=== PATIENT | male | born 1985 | race African-American/Black ===

== ENCOUNTER 2018-03-02 23:12 | Emergency (ER) | payer SELFPAY ==
[2018-03-02 23:31] VITALS: BMI 34.7
[2018-03-03] MEDS ORDERED: ACETAMINOPHEN 1000 MG/100 ML VIAL (NON FORMULARY) IVPB ONE (00:24)
[2018-03-03] MEDS ORDERED: DEXAMETHASONE SOD PHOSPHATE 10 MG/1 ML VIAL IVPUSH ONE (00:24)
[2018-03-03] MEDS ORDERED: SODIUM CHLORIDE 0.9% 500 ML INFUS.BAG IV ONE (00:24)
[2018-03-03] MEDS ORDERED: PENICILLIN G BENZATHINE 1,200,000 UNIT/2 ML PFS IM ONE (00:30)
[2018-03-03] MEDS ORDERED: DEXAMETHASONE SOD PHOSPHATE 10 MG/1 ML VIAL ONE (00:33)
[2018-03-03] MEDS ORDERED: ACETAMINOPHEN INJECTION 100 ML IVPB ONE (00:33)
--- NOTE | 2018-03-03 00:37 | PDOC ---
History of Present Illness - General Chief Complaint: Headache Stated Complaint: FEVER/PAIN Time Seen by Provider: 03/03/18 00:16 History Source: Patient Exam Limitations: No Limitations - History of Present Illness Initial Comments: 03/03/18 00:30 And is a 32-year-old male with no past medical history with complaints of throat pain since this morning. He describes the pain as sharp, burning, 10/10, it makes it difficult for him to swallow. States he's been having fever all day despite taking Motrin. His temp today was 103.5. Also complains of lightheadedness dizzy, left ear pain. Took Motrin at 8:00 tonight with minimal relief. Denies nausea, vomiting, cough, shortness of breath. PMHX: none PSOCHX: neg etoh, cig, drug ALL: NKDA GENERAL/CONSTITUTIONAL: [No fever or chills. No weakness. No weight change.] HEAD, EYES, EARS, NOSE AND THROAT: [No change in vision. (+) ear pain (-) discharge. (+) sore throat.] CARDIOVASCULAR: [No chest pain or shortness of breath.] RESPIRATORY: [No cough, wheezing, or hemoptysis.] GASTROINTESTINAL: [No nausea, vomiting, diarrhea or constipation. No rectal bleeding.] GENITOURINARY: [No dysuria, frequency, or change in urination.] MUSCULOSKELETAL: [No joint or muscle swelling or pain. No neck or back pain.] SKIN AND BREASTS: [No rash or easy bruising.] NEUROLOGIC: [No headache, vertigo, loss of consciousness, or loss of sensation.] PSYCHIATRIC: [No depression or anxiety.] ENDOCRINE: [No increased thirst. No abnormal weight change.] HEMATOLOGIC/LYMPHATIC: [No anemia, easy bleeding, or history of blood clots.] ALLERGIC/IMMUNOLOGIC: [No hives or skin allergy. No latex allergy.] GENERAL: [The patient is awake, alert, and fully oriented, in no acute distress. ] HEAD: [Normal with no signs of trauma.] EYES: [Pupils equal, round and reactive to light, extraocular movements intact, sclera anicteric, conjunctiva clear.] ENT: [Ears normal, nares patent, oropharynx with swelling, erythema, exudates, ( +) cervical lymph node on the left, (-) [employer]. Moist dry membranes. NECK: [Normal range of motion, supple without lymphadenopathy, JVD, or masses.] LUNGS: [Breath sounds equal, clear to auscultation bilaterally. No wheezes, and no crackles.] HEART: [Regular rate and rhythm, normal S1 and S2 without murmur, rub.] ABDOMEN: [Soft, nontender, normoactive bowel sounds. No guarding, no rebound. No masses.] EXTREMITIES: [Normal range of motion, no edema. No clubbing or cyanosis. No cords, erythema, or tenderness.] NEUROLOGICAL: [Cranial nerves II through XII grossly intact. Normal speech, normal gait.] PSYCH: [Normal mood, normal affect.] SKIN: [Warm, Dry, normal turgor, no rashes or lesions noted.] Past History - Past Medical History Allergies/Adverse Reactions: Allergies Allergy/AdvReac Type Severity Reaction Status Date / Time No Known Allergies Allergy Verified 03/02/18 23:20 Cardiac Disorders: No CVA: No COPD: No DVT: No Dementia: No Diabetes: No - Surgical History Appendectomy: Yes - Suicide/Smoking/Psychosocial Hx Smoking History: Never smoked Information on smoking cessation initiated: No Hx Alcohol Use: No Drug/Substance Use Hx: No Substance Use Type: None *Physical Exam - Vital Signs Last Vital Signs Temp Pulse Resp BP Pulse Ox 100.6 F H 104 H 20 150/89 96 03/02/18 23:20 03/02/18 23:20 03/02/18 23:20 03/02/18 23:20 03/02/18 23:20 Medical Decision Making - Medical Decision Making 03/03/18 00:30 And is a 32-year-old male with no past medical history with complaints of throat pain since this morning with fever and difficult swallowing consistent, dizziness. 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 Tylenol IV, IVF, decadron IV, bicillin rapid strep neg culture pending 03/03/18 01:38 Patient is improved tolerating po I discussed the physical exam findings, ancillary test results and final diagnoses with the patient. I answered all of the patient's questions. The patient was satisfied with the care received and felt comfortable with the discharge plan and treatment plan. The Patient agrees to follow up with the primary care physician within 24-72 hours 03/03/18 03:00 Selected Entries 03/03/18 02:17 Pulse Rate [ 99 H Left Apical] Respiratory 18 Rate Blood Pressure 119/67 [Right Arm] O2 Sat by Pulse 99 Oximetry (%) *DC/Admit/Observation/Transfer Diagnosis at time of Disposition: Pharyngitis Qualifiers: Pharyngitis/tonsillitis etiology: unspecified etiology Qualified Code(s): J02.9 - Acute pharyngitis, unspecified - Discharge Dispostion Disposition: HOME Condition at time of disposition: Stable - Referrals Referrals: [facility] [Provider Group] - Patient Instructions Printed Discharge Instructions: DI for Pharyngitis/Tonsillopharyngitis -- Adult Additional Instructions: Your Discharge Instructions: You must call primary care physician within 24 hours to arrange follow-up. Return to the Emergency Department with any new, persistent or worsening symptoms, for fever, chills, SOB, dizziness or any other concerning changes that may occur. Continue Tylenol and Motrin for pain. Gargle with warm salty water. - Post Discharge Activity
[2018-03-03] MEDS ORDERED: LIDOCAINE VISCOUS 2% ORAL/TOP 20 ML UNIT-DOSE CUP MM ONE ×2 (01:39→02:50)
[2018-03-03 02:19] VITALS: BP 119/67; PULSE 99
[2018-03-03] MEDS ORDERED: PENICILLIN G BENZATHINE 2,400,000 UNIT/4 ML PFS ONE (02:30)
[2018-03-03] MEDS ORDERED: LIDOCAINE VISCOUS 2% ORAL/TOP 20 ML UNIT-DOSE CUP ONE ×2 (02:30→02:50)
[2018-03-03 03:00] VITALS: TEMP 99.8
== END 2018-03-03 03:02 | disposition home or self-care (01) ==
LOC: JER 23:12
DX: J02.9 Acute pharyngitis, unspecified (principal)
CPT/HCPCS: 87070; 87430; 99281-25; J0131; J1100

== ENCOUNTER 2019-06-10 13:06 | Emergency (ER) | payer OTHER ==
--- NOTE | 2019-06-10 13:11 | PDOC ---
Rapid Medical Evaluation Time Seen by Provider: 06/10/19 13:09 Medical Evaluation: Allergies Allergy/AdvReac Type Severity Reaction Status Date / Time No Known Allergies Allergy Verified 03/02/18 23:20 06/10/19 13:09 CC: atraumatic right leg swelling PE: right calf swollen. No edema present. Orders: sono Patient will proceed to ER for continued evaluation. Discharge Disposition - Diagnosis Swelling of calf - Referrals - Patient Instructions - Post Discharge Activity
[2019-06-10 13:20] VITALS: BP 163/96; PULSE 86; TEMP 98.7; BMI 34.4
--- NOTE | 2019-06-10 14:25 | PDOC ---
History of Present Illness - General Chief Complaint: Pain, Acute Stated Complaint: RT. LEG PAIN Time Seen by Provider: 06/10/19 13:09 - History of Present Illness Initial Comments: 06/10/19 14:23 34-year-old male without comorbidities presents for evaluation of right calf swelling times approximately 1 month with some skin discoloration around the anterior aspect of the right lower leg Past History - Past Medical History Allergies/Adverse Reactions: Allergies Allergy/AdvReac Type Severity Reaction Status Date / Time No Known Allergies Allergy Verified 06/10/19 13:13 Cardiac Disorders: No CVA: No COPD: No DVT: No Dementia: No Diabetes: No - Surgical History Appendectomy: Yes - Psycho Social/Smoking Cessation Hx Smoking History: Never smoked Have you smoked in the past 12 months: No Information on smoking cessation initiated: No Hx Alcohol Use: No Drug/Substance Use Hx: No Substance Use Type: None Review of Systems - Review of Systems Constitutional: No: Fever *Physical Exam - Vital Signs Last Vital Signs Temp Pulse Resp BP Pulse Ox 98.7 F 86 17 163/96 100 06/10/19 13:10 06/10/19 13:10 06/10/19 13:10 06/10/19 13:10 06/10/19 13:10 - Physical Exam Comments: 06/10/19 14:23 GENERAL: The patient is awake, alert, and fully oriented, in no acute distress. HEAD: Normal with no signs of trauma. EYES: sclera anicteric, conjunctiva clear. EXTREMITIES: Normal range of motion, no edema. No clubbing or cyanosis. No cords, erythema, or tenderness. There is mild right-sided lower leg swelling darkening of the skin about the anterior aspect of the right lower leg just about the distal third. The calf is soft and floppy and nontender NEUROLOGICAL: Cranial nerves II through XII grossly intact. Normal speech, normal gait. PSYCH: Normal mood, normal affect. SKIN: Warm, Dry, normal turgor, no rashes or lesions noted. General Appearance: Yes: Appropriately Dressed Medical Decision Making - Medical Decision Making 06/10/19 14:24 Right lower leg swelling possibly may represent an angioedema we will have patient follow-up with primary care physician no DVT on ultrasound Discharge - Discharge Information Problems reviewed: Yes Clinical Impression/Diagnosis: Swelling of calf Condition: Stable Disposition: HOME - Admission No - Follow up/Referral - Patient Discharge Instructions Additional Instructions: Please follow-up with your primary care physician without fail in 1 to 2 days for further evaluation and treatment options and return to the emergency room should symptoms worsen. Your ultrasound was negative for deep vein thrombosis today. - Post Discharge Activity
== END 2019-06-10 15:11 | disposition home or self-care (01) ==
LOC: JERFT 13:06
DX: R22.41 Localized swelling, mass and lump, right lower limb (principal); L81.8 Other specified disorders of pigmentation
CPT/HCPCS: 93971-TC; 99281-25